=== PATIENT | female | born 1960 | race Caucasian/White ===

== ENCOUNTER 2016-10-13 08:57 | Day surgery (SDC) | payer BC ==
[2016-10-11 16:13] VITALS: BMI 33.9
[2016-10-13 09:14] VITALS: RESP 18
[2016-10-13] MEDS: SODIUM CHLORIDE 0.9% 1,000 ML IV SCH ×2 (09:14→10:53)
[2016-10-13 12:21] VITALS: BP 165/72; PULSE 58; TEMP 98
--- NOTE | 2016-10-13 15:02 | CE ---
TILT TABLE TEST DATE OF SERVICE: A 56-year-old female with recurrent dizzy spells. She underwent a 12-lead ECG which showed sinus bradycardia at rest, 47 beats a minute, normal [place], narrow QRS, normal ST segments, normal QT interval. She underwent a tilt table test. Baseline blood pressure 136/64 mmHg. Baseline based on 148 beats a minute. She was tilted upright at an angle of 70 degrees per protocol. There was no significant change in her heart rate or blood pressure. Resuming upright position, her heart rate increased into the 80s. Subsequently, she had a sudden drop in blood pressure that was preceded by a mild increase in heart rate of 93 beats a minute. Lowest blood pressure recorded was 48/32 mmHg. She was syncopal. She lost consciousness. Prior to this, she was pale, diaphoretic. When she was laid supine, her heart rate and blood pressure normalized. IMPRESSION: Neurocardiogenic response to upright tilting. SUGGEST: Avoid antihypertensive therapy, avoid Dyazide. Normal salt intake and home blood pressure monitoring.
--- NOTE | 2016-10-13 15:06 | LTR ---
October 13, 2016 RE: Nina Hernández Dear Lidia; I had the pleasure of seeing Nina Hernández in electrophysiology followup. Nina underwent a tilt table test which demonstrated neurocardiogenic syncope. In the past, she has been intolerant of lisinopril and hydrochlorothiazide. Currently she is on Dyazide. I understand that you had started her on low dose antihypertensive therapy for diastolic blood pressure that was creeping up close to 90 mmHg; however, if on Dyazide she continues to have these spells, then should be discontinued and she should limit her salt intake while monitoring home blood pressure, especially the diastolic blood pressures. Thank you for entrusting me with the care of your patient. Warm regards. Sincerely, MAGY WISE MD
== END 2016-10-13 12:14 | disposition home or self-care (01) ==
LOC: CATHEP 08:57
PROVIDERS: ATTEND Internal Medicine Clinical Cardiac Electrophysiology
DX: R55 Syncope and collapse (principal); I10 Essential (primary) hypertension; R00.1 Bradycardia, unspecified; Z79.899 Other long term (current) drug therapy; Z88.1 Allergy status to other antibiotic agents
CPT/HCPCS: 93005; 93660

== ENCOUNTER 2017-07-26 10:22 | Inpatient (IN) | payer BC ==
[2017-07-26] MEDS ORDERED: ASPIRIN 81 MG PO STA (10:40)
[2017-07-26] MEDS ORDERED: NITROGLYCERIN SL TABS 0.4 MG TAB SUBLINGUAL STA (10:40)
[2017-07-26] MEDS ORDERED: SODIUM CHLORIDE 0.9% 1,000 ML IV STA (10:40)
[2017-07-26] MEDS ORDERED: ONDANSETRON 4 MG/2 ML VIAL IVP STA (10:44)
--- NOTE | 2017-07-26 11:03 | ED ---
General Adult HPI - General Chief complaint: Chest Pain Stated complaint: chest pain, near syncope Time Seen by Provider: 07/26/17 10:40 Source: patient, RN notes reviewed Mode of arrival: wheelchair Limitations: no limitations - History of Present Illness Initial comments: Patient 57-year-old female who presents emergency room today with a chief complaint of chest pain that began approximately 7 AM. She states she was at work. She states she works at the [employer]. She states she was up moving around which again feeling some of this pain. She states it started with front and did radiate at times to the left arm. She states the pain seems to come and go little bit. She states she's currently just feeling it a 2/10 at this time. States that time she thought she felt a little short of breath and nauseated with it. Denies any other complaints at this time. Patient denies any recent fever, chills, shortness of breath, chest pain, back pain, numbness or tingling, dysuria or hematuria, constipation or diarrhea, headaches or visual changes, or any other complaints. - Related Data Home Medications Medication Instructions Recorded Confirmed Cholecalciferol [Vitamin D3] 1,000 unit PO DAILY 10/11/16 07/26/17 Multivit with Calcium,Iron,Min 1 tab PO HS 10/11/16 07/26/17 [Women's Multivitamin] Psyllium Husk [Metamucil] 0.4 gm PO HS 10/11/16 07/26/17 Triamterene-Hctz 37.5-25Mg 1 cap PO DAILY 10/11/16 07/26/17 [Dyazide 37.5-25 Capsule] Allergies Allergy/AdvReac Type Severity Reaction Status Date / Time bee pollen Allergy Anaphylaxis Verified 07/26/17 10:46 vancomycin Allergy Rash/Hives Verified 07/26/17 10:46 aspirin AdvReac ringing in Verified 07/26/17 10:46 ears caffeine AdvReac GI upset Verified 07/26/17 10:46 Review of Systems ROS Statement: Those systems with pertinent positive or pertinent negative responses have been documented in the HPI. ROS Other: All systems not noted in ROS Statement are negative. Past Medical History Past Medical History: Hypertension, Sleep Apnea/CPAP/BIPAP, Syncope Additional Past Medical History / Comment(s): see DR Krishen H & P, mild sleep apnea per pt-can't afford CPAP, past hx. iron deficiency anemia History of Any Multi-Drug Resistant Organisms: None Reported Past Surgical History: Tubal Ligation, Uterine Ablation Additional Past Surgical History / Comment(s): serjio. vein ligation legs Past Anesthesia/Blood Transfusion Reactions: No Reported Reaction Past Psychological History: Depression Smoking Status: Never smoker Past Alcohol Use History: None Reported Past Drug Use History: None Reported - Past Family History Mother Family Medical History: No Reported History General Exam - General Exam Comments Initial Comments: General: The patient is awake and alert, in no distress, and does not appear acutely ill. Eye: Pupils are equal, round and reactive to light, extra-ocular movements are intact. No nystagmus. There is normal conjunctiva bilaterally. No signs of icterus. Ears, nose, mouth and throat: There are moist mucous membranes and no oral lesions. Neck: The neck is supple, there is no tenderness or JVD. Cardiovascular: There is a regular rate and rhythm. No murmur, rub or gallop is appreciated. Respiratory: Lungs are clear to auscultation, respirations are non-labored, breath sounds are equal. No wheezes, stridor, rales, or rhonchi. Musculoskeletal: Normal ROM, no tenderness. Strength 5/5. Sensation intact. Pulses equal bilaterally 2+. Neurological: A&O x 3. CN II-XII intact, There are no obvious motor or sensory deficits. Coordination appears grossly intact. Speech is normal. Skin: Skin is warm and dry and no rashes or lesions are noted. Psychiatric: Cooperative, appropriate mood & affect, normal judgment. Limitations: no limitations Course Vital Signs 07/26/17 10:27 Temperature 97.2 F L Pulse Rate 62 Respiratory 18 Rate Blood Pressure 145/86 O2 Sat by Pulse 100 Oximetry Medical Decision Making - Medical Decision Making Patient reexamined at this time shows no signs of distress. Patient resting currently. Patient did have improvement after one nitro given here in the emergency room. She is currently pain-free at this time. Patient's cardiac enzymes are negative. Patient's EKG shows no acute changes. Patient will be admitted for serial enzymes and consult cardiology. - Lab Data Result diagrams: 07/26/17 10:52 07/26/17 10:52 Lab Results 07/26/17 07/26/17 07/26/17 Range/Units 10:52 10:52 10:52 WBC 6.7 (3.8-10.6) k/uL RBC 4.94 (3.80-5.40) m/uL Hgb 14.9 (11.4-16.0) gm/dL Hct 42.9 (34.0-46.0) % MCV 86.8 (80.0-100.0) fL MCH 30.1 (25.0-35.0) pg MCHC 34.7 (31.0-37.0) g/dL RDW 12.3 (11.5-15.5) % Plt Count 251 (150-450) k/uL Neutrophils % 71 % Lymphocytes % 22 % Monocytes % 5 % Eosinophils % 1 % Basophils % 0 % Neutrophils # 4.7 (1.3-7.7) k/uL Lymphocytes # 1.5 (1.0-4.8) k/uL Monocytes # 0.3 (0-1.0) k/uL Eosinophils # 0.1 (0-0.7) k/uL Basophils # 0.0 (0-0.2) k/uL PT (9.0-12.0) sec INR (<1.2) APTT (22.0-30.0) sec Sodium 141 (137-145) mmol/L Potassium 4.6 (3.5-5.1) mmol/L Chloride 102 (98-107) mmol/L Carbon Dioxide 25 (22-30) mmol/L Anion Gap 14 mmol/L BUN 19 H (7-17) mg/dL Creatinine 0.92 (0.52-1.04) mg/dL Est GFR (CKD-EPI)AfAm 80 (>60 ml/min/1.73 sqM) Est GFR (CKD-EPI)NonAf 69 (>60 ml/min/1.73 sqM) Glucose 89 (74-99) mg/dL Calcium 10.0 (8.4-10.2) mg/dL Magnesium 1.9 (1.6-2.3) mg/dL Total Bilirubin 0.5 (0.2-1.3) mg/dL AST 24 (14-36) U/L ALT 33 (9-52) U/L Alkaline Phosphatase 98 (38-126) U/L Total Creatine Kinase 75 (30-135) U/L CK-MB (CK-2) 0.8 (0.0-2.4) ng/mL CK-MB (CK-2) Rel Index 1.1 Troponin I <0.012 (0.000-0.034) ng/mL Total Protein 7.7 (6.3-8.2) g/dL Albumin 4.6 (3.5-5.0) g/dL 07/26/17 Range/Units 10:52 WBC (3.8-10.6) k/uL RBC (3.80-5.40) m/uL Hgb (11.4-16.0) gm/dL Hct (34.0-46.0) % MCV (80.0-100.0) fL MCH (25.0-35.0) pg MCHC (31.0-37.0) g/dL RDW (11.5-15.5) % Plt Count (150-450) k/uL Neutrophils % % Lymphocytes % % Monocytes % % Eosinophils % % Basophils % % Neutrophils # (1.3-7.7) k/uL Lymphocytes # (1.0-4.8) k/uL Monocytes # (0-1.0) k/uL Eosinophils # (0-0.7) k/uL Basophils # (0-0.2) k/uL PT 10.0 (9.0-12.0) sec INR 1.0 (<1.2) APTT 23.3 (22.0-30.0) sec Sodium (137-145) mmol/L Potassium (3.5-5.1) mmol/L Chloride (98-107) mmol/L Carbon Dioxide (22-30) mmol/L Anion Gap mmol/L BUN (7-17) mg/dL Creatinine (0.52-1.04) mg/dL Est GFR (CKD-EPI)AfAm (>60 ml/min/1.73 sqM) Est GFR (CKD-EPI)NonAf (>60 ml/min/1.73 sqM) Glucose (74-99) mg/dL Calcium (8.4-10.2) mg/dL Magnesium (1.6-2.3) mg/dL Total Bilirubin (0.2-1.3) mg/dL AST (14-36) U/L ALT (9-52) U/L Alkaline Phosphatase (38-126) U/L Total Creatine Kinase (30-135) U/L CK-MB (CK-2) (0.0-2.4) ng/mL CK-MB (CK-2) Rel Index Troponin I (0.000-0.034) ng/mL Total Protein (6.3-8.2) g/dL Albumin (3.5-5.0) g/dL Disposition Clinical Impression: Chest pain Disposition: ADMITTED IP TO THIS HOSP Condition: Good Instructions: Chest Pain (ED) Referrals: Lidia Edwards DO [Primary Care Provider] - 1-2 days Time of Disposition: 12:21
[2017-07-26 11:14] LABS: Basophils % (A) 0 %; Eosinophils # (A) 0.1 k/uL (0-0.7); Eosinophils % (A) 1 %; HCT 42.9 % (34.0-46.0); HGB 14.9 gm/dL (11.4-16.0); Lymphocytes # (A) 1.5 k/uL (1.0-4.8); Lymphocytes % (A) 22 %; MCH 30.1 pg (25.0-35.0); MCHC 34.7 g/dL (31.0-37.0); MCV 86.8 fL (80.0-100.0); Mean Platelet Volume 6.4; Monocytes # (A) 0.3 k/uL (0-1.0); Monocytes % (A) 5 %; Neutrophils # (A) 4.7 k/uL (1.3-7.7); Neutrophils % (A) 71 %; Platelet Count 251 k/uL (150-450); RBC 4.94 m/uL (3.80-5.40); RDW 12.3 % (11.5-15.5); WBC 6.7 k/uL (3.8-10.6)
[2017-07-26 11:26] LABS: Albumin 4.6 g/dL (3.5-5.0); Potassium 4.6 mmol/L (3.5-5.1); Total Bilirubin 0.5 mg/dL (0.2-1.3); Total Protein 7.7 g/dL (6.3-8.2)
[2017-07-26 11:43] LABS: Creatine Kinase 75 U/L (30-135); Partial Thromboplastin Time 23.3 sec (22.0-30.0)
--- NOTE | 2017-07-26 11:48 | XR ---
EXAMINATION TYPE: XR chest 2V DATE OF EXAM: 07/26/2017 COMPARISON: NONE INDICATION: Chest pain TECHNIQUE: Frontal and lateral views of the chest are obtained. FINDINGS: The heart size is normal. The pulmonary vasculature is normal. The lungs are clear. IMPRESSION: 1. No acute pulmonary process.
[2017-07-26 11:57] LABS: Creatine Kinase MB 0.8 ng/mL (0.0-2.4); Troponin I <0.012 ng/mL (0.000-0.034)
[2017-07-26] MEDS ORDERED: HEPARIN SODIUM,PORCINE 5,000 UNIT/ML 1 ML VIAL IV ONE (12:22)
[2017-07-26] MEDS ORDERED: NITROGLYCERIN SL TABS 0.4 MG TAB SUBLINGUAL PRN (12:22)
[2017-07-26] MEDS ORDERED: HEPARIN SOD,PORK IN 0.45% NACL 25,000 UNIT in 0.45% NACL 1 500ML.BAG IV SCH (12:30)
[2017-07-26] MEDS ORDERED: ACETAMINOPHEN TAB 500 MG TAB PO STA (13:32)
[2017-07-26 16:40] LABS: Creatine Kinase 59 U/L (30-135)
[2017-07-26 16:54] LABS: Creatine Kinase MB 0.6 ng/mL (0.0-2.4); Troponin I <0.012 ng/mL (0.000-0.034)
[2017-07-26] MEDS ORDERED: ACETAMINOPHEN TAB 325 MG TAB PO PRN (21:42)
[2017-07-26 23:18] LABS: Creatine Kinase 53 U/L (30-135)
[2017-07-26 23:32] LABS: Creatine Kinase MB 0.6 ng/mL (0.0-2.4); Troponin I <0.012 ng/mL (0.000-0.034)
[2017-07-27 05:25] LABS: Cholesterol 183 mg/dL (<200); HDL Cholesterol 56 mg/dL (40-60); LDL Cholesterol,Calculated 114 mg/dL (0-99); Triglycerides 67 mg/dL (<150)
[2017-07-27] MEDS ORDERED: ASPIRIN 325 MG TAB PO SCH (09:00)
[2017-07-27] MEDS ORDERED: RX INFO: IV CONTRAST WAS GIVEN 1 EACH MISC MISCELLANE PRN (09:48)
--- NOTE | 2017-07-27 10:41 | CT ---
CT CHEST FOR PULMONARY EMBOLISM. EXAMINATION TYPE: CT angio chest DATE OF EXAM: 07/27/2017 INDICATION: Elevated d-dimer, shortness of breath CT DLP: 865 mGycm, Automated exposure control for dose reduction was used. CONTRAST: Patient injected with 100 mL of Omnipaque 350. COMPARISON: NONE TECHNIQUE: CT of the chest is performed on a spiral scan at 2 mm thick sections. Study is performed with intravenous contrast timed for evaluation for pulmonary embolism. This will limit additional po rtions of the evaluation. 3-D MIP images reconstructed by the technologist are reviewed on the compu ter in the coronal and sagittal planes. FINDINGS: No persistent filling defects are evident to suggest an acute pulmonary embolism. No mediastinal or hilar adenopathy enlarged by CT criteria is evident. The ascending aorta diameter at the level of the main pulmonary artery is 3.6 cm. The main pulmonary artery diameter at the bifur cation is 3.1 cm. Lung windows are clear. Limited CT section through the upper abdomen are unremarkable. IMPRESSIONS: 1. No acute pulmonary embolism.
[2017-07-27 11:59] VITALS: PULSE 57
--- NOTE | 2017-07-27 13:05 | P.CRDCN ---
History of Present Illness Consult date: 07/27/17 Consult reason: chest pain History of present illness: Mrs. Hernández is a pleasant 57-year-old female past medical history significant for neurocardiac syncope, hypertension, gastroesophageal reflux disease and sleep apnea. She follows with Dr. Morales in the outpatient setting. She denies history of coronary artery disease. We have been asked to see her in consultation for complaints of chest pain. She states while at work yesterday she started feeling a pressure heavy sensation in the left anterior chest that radiated down her left arm. She then became mildly short of breath, nauseated, diaphoretic and dizzy. At that point she sat down because she felt as though she was going to pass out. The pain persisted off and on for approximately 3-4 hrs until she came to the emergency department. At that time she was given some nitroglycerin and it took the pain away. She isn't completely asymptomatic since admission. Telemetry tracings have been unremarkable aside from sinus bradycardia at night while sleeping. She denies associated palpitations, vomiting. She also denies symptoms of cough, fever chills, PND or orthopnea. EKG on arrival reveals sinus mechanism with no acute ST or T-wave abnormalities. Chest x-ray is negative for acute cardiopulmonary process. Laboratory data reviewed, hemoglobin 14.9, platelets 251, potassium 4.6, magnesium 1.9, creatinine 0.92, cardiac enzymes negative 3, LDL 114, ratio 56. Current cardiac medications include Dyazide 37.5/25 mg daily. Review of Systems At the time of exam: CONSTITUTIONAL: Denies fever. Denies chills. EYES: Denies blurred vision. Denies vision changes. Denies eye pain. EARS, NOSE, MOUTH & THROAT: Denies headache. Denies sore throat. Denies ear pain. CARDIOVASCULAR: Denies chest pain. Denies shortness of breath. Denies orthopnea. Denies PND. Denies palpitations. RESPIRATORY: Denies cough. GASTROINTESTINAL: Denies abdominal pain. Denies diarrhea. Denies constipation. Denies nausea. Denies vomiting. MUSCULOSKELETAL: Denies myalgias. INTEGUMENTARY: Denies pruitis. Denies rash. NEUROLOGIC: Denies numbness. Denies tingling. Denies weakness. PSYCHIATRIC: Denies anxiety. Denies depression. ENDOCRINE: Denies fatigue. Denies weight change. Denies polydipsia. Denies polyurina. GENITOURINARY: Denies burning, hematuria or urgency with micturation. HEMATOLOGIC: Denies history of anemia. Denies bleeding. Past Medical History Past Medical History: GERD/Reflux, Hypertension, Sleep Apnea/CPAP/BIPAP, Syncope Additional Past Medical History / Comment(s): KRISTIN-mild/no device, iron deficiency anemia, 2010 R foot cellulitis, L knee pain chronic for 2 yrs. History of Any Multi-Drug Resistant Organisms: None Reported Past Surgical History: Tubal Ligation, Uterine Ablation Additional Past Surgical History / Comment(s): serjio. vein ligation legs, tilt table test, colonoscopy, D&C. Past Anesthesia/Blood Transfusion Reactions: No Reported Reaction Past Psychological History: Depression Additional Psychological History / Comment(s): Pt states she has been treated in the past for depression but none currently. She is independent. Smoking Status: Never smoker Past Alcohol Use History: None Reported Past Drug Use History: None Reported - Past Family History Mother Family Medical History: Pneumonia Additional Family Medical History / Comment(s): Mother of post op pneumonia at the age of 40 yrs. Father Family Medical History: Congestive Heart Failure (CHF) Additional Family Medical History / Comment(s): Father lived to be 90 yrs old. Medications and Allergies Home Medications Medication Instructions Recorded Confirmed Type Cholecalciferol [Vitamin D3] 1,000 unit PO DAILY 10/11/16 07/26/17 History Multivit with Calcium,Iron,Min 1 tab PO HS 10/11/16 07/26/17 History [Women's Multivitamin] Psyllium Husk [Metamucil] 0.4 gm PO HS 10/11/16 07/26/17 History Triamterene-Hctz 37.5-25Mg 1 cap PO DAILY 10/11/16 07/26/17 History [Dyazide 37.5-25 Capsule] Allergies Allergy/AdvReac Type Severity Reaction Status Date / Time bee pollen Allergy Anaphylaxis Verified 07/26/17 10:46 vancomycin Allergy Rash/Hives Verified 07/26/17 10:46 aspirin AdvReac ringing in Verified 07/26/17 10:46 ears caffeine AdvReac GI upset Verified 07/26/17 10:46 Physical Exam Vitals: Vital Signs Temp Pulse Pulse Resp BP BP Pulse Ox 07/27/17 04:00 40 L 16 07/27/17 03:07 96.7 F L 57 L 16 130/70 97 07/26/17 23:46 98.1 F 54 L 16 163/77 100 07/26/17 23:22 46 L 16 07/26/17 20:00 45 L 16 151/84 99 07/26/17 18:35 95 07/26/17 17:55 98.2 F 63 18 170/94 98 07/26/17 17:12 65 16 149/79 99 07/26/17 14:52 64 16 149/79 100 07/26/17 13:19 55 L 18 149/89 100 07/26/17 12:26 57 L 19 130/80 100 07/26/17 10:27 97.2 F L 62 18 145/86 100 Intake and Output 07/26/17 07/27/17 07/27/17 22:59 06:59 14:59 Intake Total 174.333 Balance 174.333 Intake: Intake, IV Titration 174.333 Amount Heparin Sod,Pork in 0.45% 174.333 NaCl 25,000 unit In 0.45 % NaCl 1 500ml.bag @ 9.59 UNITS/KG/HR 20 mls/hr IV .Q24H [facility] Rx#:[id number] Other: Voiding Method Toilet Toilet # Voids 1 1 Weight 105.9 kg Blood pressure 125/75 heart rate 61 afebrile maintaining oxygen saturation on room air GENERAL: This is a 57-year-old female in no apparent distress at the time of my examination. HEENT: Head is atraumatic, normocephalic. Pupils are equal, round. Sclerae anicteric. Conjunctivae are clear. Mucous membranes of the mouth are moist. Neck is supple. There is no jugular venous distention. No carotid bruit is heard. LUNGS: Clear to auscultation no wheezes, rales or rhonchi. No chest wall tenderness is noted on palpation or with deep breathing. HEART: Regular rate and rhythm with faint systolic ejection murmur at the base, no rubs or gallops. S1 and S2 heard. ABDOMEN: Soft, nontender. Bowel sounds are heard. No organomegaly noted. EXTREMITIES: No evidence of peripheral edema and no calf tenderness noted. VASCULAR: Radial and dorsalis pedis pulses palpated, no evidence of clubbing. NEUROLOGIC: Patient is awake, alert and oriented x3. Results 07/26/17 10:52 07/26/17 10:52 Cardiac Enzymes 07/26/17 07/26/17 07/26/17 Range/Units 10:52 10:52 16:03 AST 24 (14-36) U/L CK-MB (CK-2) 0.8 0.6 (0.0-2.4) ng/mL Troponin I <0.012 <0.012 (0.000-0.034) ng/mL 07/26/17 Range/Units 22:36 AST (14-36) U/L CK-MB (CK-2) 0.6 (0.0-2.4) ng/mL Troponin I <0.012 (0.000-0.034) ng/mL Coagulation 07/26/17 07/26/17 07/27/17 Range/Units 10:52 18:44 04:19 PT 10.0 (9.0-12.0) sec APTT 23.3 44.6 H 52.5 H (22.0-30.0) sec Lipids 07/27/17 Range/Units 04:19 Triglycerides 67 (<150) mg/dL Cholesterol 183 (<200) mg/dL HDL Cholesterol 56 (40-60) mg/dL CBC 07/26/17 Range/Units 10:52 WBC 6.7 (3.8-10.6) k/uL RBC 4.94 (3.80-5.40) m/uL Hgb 14.9 (11.4-16.0) gm/dL Hct 42.9 (34.0-46.0) % Plt Count 251 (150-450) k/uL Comprehensive Metabolic Panel 07/26/17 Range/Units 10:52 Sodium 141 (137-145) mmol/L Potassium 4.6 (3.5-5.1) mmol/L Chloride 102 (98-107) mmol/L Carbon Dioxide 25 (22-30) mmol/L BUN 19 H (7-17) mg/dL Creatinine 0.92 (0.52-1.04) mg/dL Glucose 89 (74-99) mg/dL Calcium 10.0 (8.4-10.2) mg/dL AST 24 (14-36) U/L ALT 33 (9-52) U/L Alkaline Phosphatase 98 (38-126) U/L Total Protein 7.7 (6.3-8.2) g/dL Albumin 4.6 (3.5-5.0) g/dL Current Medications Generic Name Dose Route Start Last Admin Trade Name Freq PRN Reason Stop Dose Admin Acetaminophen 650 mg 07/26/17 21:42 Tylenol Tab PO Q4HR PRN Fever and/ or Pain Aspirin 325 mg 07/27/17 09:00 Aspirin PO DAILY KWABENA Heparin Sodium/Sodium Chloride 500 mls @ 20 mls/hr 07/26/17 12:30 07/26/17 21 :24 25,000 unit/ Sodium Chloride IV 11.59 units/kg/hr .Q24H KWABENA 24.2 mls/hr Protocol Titration 9.59 UNITS/KG/HR Nitroglycerin 0.4 mg 07/26/17 12:22 Nitrostat SUBLINGUAL Q5M PRN Chest Pain Intake and Output 07/26/17 07/27/17 07/27/17 22:59 06:59 14:59 Intake Total 174.333 Balance 174.333 Intake: Intake, IV Titration 174.333 Amount Heparin Sod,Pork in 0.45% 174.333 NaCl 25,000 unit In 0.45 % NaCl 1 500ml.bag @ 9.59 UNITS/KG/HR 20 mls/hr IV .Q24H [facility] Rx#:[id number] Other: Voiding Method Toilet Toilet # Voids 1 1 Weight 105.9 kg 07/26/17 10:52 07/26/17 10:52 Assessment and Plan Assessment: ASSESSMENT 1. Chest pain, atypical. An acute coronary event has been ruled out with no EKG evidence of ischemia and negative cardiac enzymes. 2. Hypertension 3. Dyslipidemia 4. Obesity PLAN Check d-dimer. If positive to CT angios the chest rule out pulmonary embolism. Obtain 2-D echocardiogram and Doppler study to assess cardiac structure and function. Perform stress echocardiogram to assess for stress-induced cardiac ischemia. Lifestyle modifications discussed and recommended for lowering of cholesterol. Further recommendations be based on diagnostic findings. Thank you kindly for this consultation. Nurse Practitioner note has been reviewed, I agree with a documented findings and plan of care. Patient was seen and examined.
--- NOTE | 2017-07-27 15:13 | P.HPIM ---
History of Present Illness H&P Date: 07/27/17 Chief Complaint: Chest pain This is a 57-year-old female, patient [facility]. She has a known past medical history of hypertension, obstructive sleep apnea not requiring CPAP any longer, iron deficiency anemia, neurocardiogenic syncope and sinus bradycardia syndrome. She is followed by Dr. Enrique in the office. Patient works at [employer] in the [place] section. She reports on at 7 AM yesterday morning she started having chest pains while she was at work. The chest pains were on the left side of her chest going down into the left arm. Symptoms lasted for about 3-4 hours. She had some nausea, sweating and some shortness of breath with the symptoms. Patient was admitted to the observation floor. Cardiac workup was initiated. Cardiology consulted. EKG showing normal sinus rhythm with inferior infarct age undetermined, chest x-ray was negative, troponins negative 3 sets. She did have a elevated d-dimer at 0.66 CTA of the chest completed which was negative for PE. Last stress test was in October which was negative. Cardiology had scheduled patient for a stress test and echocardiogram today. They have reviewed review those results and have found no significant after malady and has cleared patient for discharge. Patient's symptoms have resolved. Review of Systems Please refer to HPI otherwise unremarkable Past Medical History Past Medical History: GERD/Reflux, Hypertension, Sleep Apnea/CPAP/BIPAP, Syncope Additional Past Medical History / Comment(s): KRISTIN-mild/no device, iron deficiency anemia, 2010 R foot cellulitis, L knee pain chronic for 2 yrs. History of Any Multi-Drug Resistant Organisms: None Reported Past Surgical History: Tubal Ligation, Uterine Ablation Additional Past Surgical History / Comment(s): serjio. vein ligation legs, tilt table test, colonoscopy, D&C. Past Anesthesia/Blood Transfusion Reactions: No Reported Reaction Past Psychological History: Depression Additional Psychological History / Comment(s): Pt states she has been treated in the past for depression but none currently. She is independent. Smoking Status: Never smoker Past Alcohol Use History: None Reported Past Drug Use History: None Reported - Past Family History Mother Family Medical History: Pneumonia Additional Family Medical History / Comment(s): Mother of post op pneumonia at the age of 40 yrs. Father Family Medical History: Congestive Heart Failure (CHF) Additional Family Medical History / Comment(s): Father lived to be 90 yrs old. Medications and Allergies Home Medications Medication Instructions Recorded Confirmed Type Cholecalciferol [Vitamin D3] 1,000 unit PO DAILY 10/11/16 07/26/17 History Multivit with Calcium,Iron,Min 1 tab PO HS 10/11/16 07/26/17 History [Women's Multivitamin] Psyllium Husk [Metamucil] 0.4 gm PO HS 10/11/16 07/26/17 History Triamterene-Hctz 37.5-25Mg 1 cap PO DAILY 10/11/16 07/26/17 History [Dyazide 37.5-25 Capsule] Allergies Allergy/AdvReac Type Severity Reaction Status Date / Time bee pollen Allergy Anaphylaxis Verified 07/26/17 10:46 vancomycin Allergy Rash/Hives Verified 07/26/17 10:46 aspirin AdvReac ringing in Verified 07/26/17 10:46 ears caffeine AdvReac GI upset Verified 07/26/17 10:46 Physical Exam Vitals: Vital Signs Temp Pulse Pulse Resp BP BP Pulse Ox 07/27/17 11:57 98.1 F 57 L 16 116/82 99 07/27/17 08:00 98.6 F 61 16 125/75 98 07/27/17 04:00 40 L 16 07/27/17 03:07 96.7 F L 57 L 16 130/70 97 07/26/17 23:46 98.1 F 54 L 16 163/77 100 07/26/17 23:22 46 L 16 07/26/17 20:00 45 L 16 151/84 99 07/26/17 18:35 95 07/26/17 17:55 98.2 F 63 18 170/94 98 07/26/17 17:12 65 16 149/79 99 Intake and Output 07/27/17 07/27/17 07/27/17 06:59 14:59 22:59 Intake Total 236 Balance 236 Intake: Oral 236 Other: Voiding Method Toilet Toilet # Voids 1 1 Head normocephalic Neck supple Lungs clear to auscultation bilaterally no wheezing or crackles Heart regular rate and rhythm S1-S2, no rub or gallop Abdomen is soft nontender nondistended positive bowel sounds no hepatosplenomegaly Extremities no edema Neuro alert and orientated to 3 Results CBC & Chem 7: 07/26/17 10:52 07/26/17 10:52 Labs: Abnormal Lab Results - Last 24 Hours (Table) 07/26/17 07/27/17 07/27/17 Range/Units 18:44 04:19 04:19 APTT 44.6 H 52.5 H (22.0-30.0) sec D-Dimer (<0.60) mg/L FEU LDL Cholesterol, Calc 114 H (0-99) mg/dL 07/27/17 Range/Units 04:19 APTT (22.0-30.0) sec D-Dimer 0.66 H (<0.60) mg/L FEU LDL Cholesterol, Calc (0-99) mg/dL Thrombosis Risk Factor Assmnt - Choose All That Apply Any of the Below Risk Factors Present?: Yes Each Factor Represents 1 point: Age 41-60 years, Obesity (BMI >25) Other Risk Factors: No Other congenital or acquired thrombophilia - If yes, enter type in comment: No Thrombosis Risk Factor Assessment Total Risk Factor Score: 2 Thrombosis Risk Factor Assessment Level: Low Risk Assessment and Plan Assessment: 1. Chest pain: [place] ruled out. Troponins negative 3 sets, EKG normal sinus rhythm, chest x-ray negative, d-dimer elevated CTA of the chest negative for PE. Patient underwent stress test and echocardiogram today. Results are reviewed by cardiology and they had reported them as negative. Case discussed with cardiology nurse practitioner. They have cleared patient for discharge. 2. History of essential hypertension 3. Iron deficiency anemia 4. History of obstructive sleep apnea 5. Hyperlipidemia: Lifestyle modifications are recommended per cardiology. LDL 114 Time with Patient: Greater than 30 (Greater than 50% of the total time spent in counseling and coordination of care.I performed an examination of the patient and discussed their management with the physician Dry House Operator. I have reviewed the Physician Dry House Operator's notes and agree with the documented findings and plan of care)
--- NOTE | 2017-07-27 15:16 | P.DS ---
Providers Date of admission: 07/26/17 13:04 Expected date of discharge: 07/27/17 Attending physician: Hugo Rondon Consults: 07/26/17 12:22 Consult Physician Stat Consulting Provider: [facility] Consult Reason/Comments: Chest pain Do you want consulting provider notified?: Yes Primary care physician: Lidia Edwards [facility] Course: Discharge diagnosis 1. Chest pain: [place] ruled out. Troponins negative 3 sets, EKG normal sinus rhythm, chest x-ray negative, d-dimer elevated CTA of the chest negative for PE. Patient underwent stress test and echocardiogram today. Results are reviewed by cardiology and they had reported them as negative. Case discussed with cardiology nurse practitioner. They have cleared patient for discharge. 2. History of essential hypertension 3. Iron deficiency anemia 4. History of obstructive sleep apnea 5. Hyperlipidemia: Lifestyle modifications are recommended per cardiology. LDL 114 Hospital course This is a 57-year-old female, patient [facility]. She has a known past medical history of hypertension, obstructive sleep apnea not requiring CPAP any longer, iron deficiency anemia, neurocardiogenic syncope and sinus bradycardia syndrome. She is followed by Dr. Enrique in the office. Patient works at [employer] in the [employer]. She reports on at 7 AM yesterday morning she started having chest pains while she was at work. The chest pains were on the left side of her chest going down into the left arm. Symptoms lasted for about 3-4 hours. She had some nausea, sweating and some shortness of breath with the symptoms. Patient was admitted to the observation floor. Cardiac workup was initiated. Cardiology consulted. EKG showing normal sinus rhythm with inferior infarct age undetermined, chest x-ray was negative, troponins negative 3 sets. She did have a elevated d-dimer at 0.66 CTA of the chest completed which was negative for PE. Last stress test was in October which was negative. Cardiology had scheduled patient for a stress test and echocardiogram today. They have reviewed review those results and have found no significant after malady and has cleared patient for discharge. Patient's symptoms have resolved. Chest pain has resolved. Patient seen by cardiology. Cardiac workup is negative. Stress tests and negative. EchocardiogramsNormality. Results of the echo and stress test were reviewed by cardiology. Reports are not available to me. Case discussed with cardiology they have cleared her for discharge. Alvaro España follow-up with her in the office. Recommend that she sees her PCP in 1 week. Chest pain had resolved. [place] ruled out. Patient is medically stable for discharge. I performed an examination of the patient and discussed their management with the physician Wound Care Nurse. I have reviewed the Physician Wound Care Nurse's notes and agree with the documented findings and plan of care Patient Condition at Discharge: Stable Plan - Discharge Summary Discharge Rx Participant: No New Discharge Prescriptions: Continue Triamterene-Hctz 37.5-25Mg [Dyazide 37.5-25 Capsule] 1 cap PO DAILY Cholecalciferol [Vitamin D3] 1,000 unit PO DAILY Psyllium Husk [Metamucil] 0.4 gm PO HS Multivit with Calcium,Iron,Min [Women's Multivitamin] 1 tab PO HS Discharge Medication List Cholecalciferol [Vitamin D3] 1,000 unit PO DAILY 10/11/16 [History] Multivit with Calcium,Iron,Min [Women's Multivitamin] 1 tab PO HS 10/11/16 [ History] Psyllium Husk [Metamucil] 0.4 gm PO HS 10/11/16 [History] Triamterene-Hctz 37.5-25Mg [Dyazide 37.5-25 Capsule] 1 cap PO DAILY 10/11/16 [ History] Follow up Appointment(s)/Referral(s): John De La Torre MD [STAFF PHYSICIAN] - 3 Weeks Lidia Edwards DO [Primary Care Provider] - 1 Week Patient Instructions/Handouts: Chest Pain (ED) Activity/Diet/Wound Care/Special Instructions: Diet: cardiac, low cholesterol Activity: as tolerated Discharge Disposition: HOME SELF-CARE
[2017-07-27 15:55] VITALS: BP 132/82; RESP 18; TEMP 98.6
--- NOTE | 2017-07-27 17:23 | ECHOF ---
Referral Reason:cp MEASUREMENTS -------- HEIGHT: 167.6 cm WEIGHT: 105.7 kg BP: RVIDd: 3.7 cm (< 3.3) IVSd: 1.0 cm (0.6 - 1.1) LVIDd: 4.6 cm (3.9 - 5.3) LVPWd: 0.8 cm (0.6 - 1.1) IVSs: 1.5 cm LVIDs: 2.6 cm LVPWs: 1.7 cm Ao Diam: 3.1 cm (2.0 - 3.7) AV Cusp: 1.7 cm (1.5 - 2.6) LA Diam: 2.8 cm (2.7 - 3.8) MV EXCURSION: 16.659 mm (> 18.000) MV EF SLOPE: 44 mm/s (70 - 150) EPSS: 0.7 cm MV E Noel: 1.06 m/s MV DecT: 321 ms MV A Noel: 1.18 m/s MV E/A Ratio: 0.90 RAP: 5.00 mmHg RVSP: 47.99 mmHg FINDINGS -------- Sinus rhythm. This was a technically good study. The left ventricular size is normal. Left ventricular wall thickness is normal. Overall left vent ricular systolic function is low-normal with, an EF between 50 - 55 %. The right ventricle is mildly enlarged. The left atrium is normal in size. The right atrium is normal in size. The aortic valve is trileaflet, and appears structurally normal. No aortic stenosis or regurgitation. There is trace mitral regurgitation. Mild tricuspid regurgitation present. There is mild pulmonary hypertension. The right ventricular systolic pressure, as measured by Doppler, is 47.99mmHg. Pulmonic valve appears structurally normal. The aortic root size is normal. Normal inferior vena cava with normal inspiratory collapse consistent with estimated right atrial pre ssure of 5 mmHg. The pericardium is normal. CONCLUSIONS -------- 1. Sinus rhythm. 2. This was a technically good study. 3. The left ventricular size is normal. 4. Left ventricular wall thickness is normal. 5. Overall left ventricular systolic function is low-normal with, an EF between 50 - 55 %. 6. The right ventricle is mildly enlarged. 7. The left atrium is normal in size. 8. The right atrium is normal in size. 9. The aortic valve is trileaflet, and appears structurally normal. No aortic stenosis or regurgitati on. 10. There is trace mitral regurgitation. 11. Mild tricuspid regurgitation present. 12. There is mild pulmonary hypertension. 13. The right ventricular systolic pressure, as measured by Doppler, is 47.99mmHg. 14. Pulmonic valve appears structurally normal. 15. The aortic root size is normal. 16. Normal inferior vena cava with normal inspiratory collapse consistent with estimated right atrial pressure of 5 mmHg. 17. The pericardium is normal. COMBUSTION ANALYST: Ciara Goodrich RDCS
--- NOTE | 2017-08-01 12:37 | P.STRESS ---
- Stress Test Note Stress Test Results/Findings: Exam Performed: stress echo exercise Exam Date: 07/27/17 Reason for Exam: CHEST PAIN Height: 5 ft 6 in Weight: 105.9 kg Protocol: JUAN Stage: 2 Duration of Exercise: 6:00 Resting Heart Rate: 71 Resting Blood Pressure: 126/86 Maximum Achieved Heart Rate: 138 Maximum Achieved Blood Pressure: 213/61 85% PMHR: 138 100% PMHR: 162 METS: 7.1 Technologist Comment: Stress Test Results/Findings: This is a 57-year-old female with history of hypertension, family history of ischemic heart disease being evaluated for symptoms of chest pain and shortness of breath. Baseline EKG showed sinus rhythm with normal DE interval, QRS duration. Blood pressure at rest is 126/86, pulse rate of 71. Patient walked on the Juan protocol for 6 minutes achieving a maximum heart rate of 138 with a blood pressure of 213/61. EKGs taken during and after exercise did not reveal any significant changes to suggest ischemia. Patient had frequent PVCs and couplets in the post exercise period. Echo data: Baseline echo images showed normal wall motion and thickening. Exercise echo images showed augmentation of wall motion and thickening in all the segments. Final impression: #1. Negative stress test #2. Negative stress echo.
--- NOTE | 2017-08-01 13:27 | ECHOS ---
- Stress Test Note Stress Test Results/Findings: Exam Performed: stress echo exercise Exam Date: 07/27/17 Reason for Exam: CHEST PAIN Height: 5 ft 6 in Weight: 105.9 kg Protocol: JUAN Stage: 2 Duration of Exercise: 6:00 Resting Heart Rate: 71 Resting Blood Pressure: 126/86 Maximum Achieved Heart Rate: 138 Maximum Achieved Blood Pressure: 213/61 85% PMHR: 138 100% PMHR: 162 METS: 7.1 Technologist Comment: Stress Test Results/Findings: This is a 57-year-old female with history of hypertension, family history of ischemic heart disease being evaluated for symptoms of chest pain and shortness of breath. Baseline EKG showed sinus rhythm with normal KS interval, QRS duration. Blood pressure at rest is 126/86, pulse rate of 71. Patient walked on the Juan protocol for 6 minutes achieving a maximum heart rate of 138 with a blood pressure of 213/61. EKGs taken during and after exercise did not reveal any significant changes to suggest ischemia. Patient had frequent PVCs and couplets in the post exercise period. Echo data: Baseline echo images showed normal wall motion and thickening. Exercise echo images showed augmentation of wall motion and thickening in all the segments. Final impression: #1. Negative stress test #2. Negative stress echo. PETER
== END 2017-07-27 16:36 | disposition home or self-care (01) | DRG 313 ==
LOC: EC 10:22 → 3OBS 12:22 → OBSVTOIN 13:04 → 3OBS 17:53
PROVIDERS: ADMIT Internal Medicine; ATTEND Internal Medicine
DX: R07.9 Chest pain, unspecified (principal); D50.9 Iron deficiency anemia, unspecified; E66.9 Obesity, unspecified; E78.5 Hyperlipidemia, unspecified; G47.33 Obstructive sleep apnea (adult) (pediatric); I10 Essential (primary) hypertension; K21.9 Gastro-esophageal reflux disease without esophagitis; R79.1 Abnormal coagulation profile; Z82.49 Family history of ischemic heart disease and other diseases of the circulatory system; Z88.8 Allergy status to other drugs, medicaments and biological substances; Z88.6 Allergy status to analgesic agent; Z88.1 Allergy status to other antibiotic agents; Z91.030 Bee allergy status; M25.562 Pain in left knee; Z68.37 Body mass index [BMI] 37.0-37.9, adult; Z79.899 Other long term (current) drug therapy
CPT/HCPCS: 36415; 71046; 71275; 80053; 80061; 82550; 82553; 83735; 84484; 85025; 85379; 85610; 85730; 93005; 93017; 93306; 93350; 96361; 96365; 96366; 96375; 96376; 99285

== ENCOUNTER → 2018-05-17 | Outpatient (CLI) | payer BC ==
--- NOTE | 2018-05-18 13:52 | MM ---
Reason for exam: screening (asymptomatic). Last mammogram was performed 3 years ago. Physical Findings: A clinical breast exam by your physician is recommended on an annual basis and results should be correlated with mammographic findings. MG Screening Mammo w CAD Bilateral CC and MLO view(s) were taken. Prior study comparison: May 18, 2015, mammogram, performed at [facility]. November 13, 2014, mammogram, performed at [facility]. November 06, 2014, mammogram, performed at [facility]. The breast tissue is extremely dense which could obscure a lesion on mammography. Finding #1: There is a 10 mm equal density (isodense), circumscribed oval mass in the middle, central, posterior position of the left breast. Finding #2: There are stable typically benign round, regional calcifications in the anterior position of the left breast. ASSESSMENT: Incomplete: need additional imaging evaluation, BI-RAD 0 RECOMMENDATION: Special view mammogram of the right breast. If lesion persists on supplemental views, image directed ultrasound is recommended. [facility] will attempt to contact patient to return for supplemental views and ultrasound if indicated.
== END ==
LOC: RADMAMWWP 07:43
PROVIDERS: ATTEND Family Medicine
DX: Z12.31 Encounter for screening mammogram for malignant neoplasm of breast (principal)
CPT/HCPCS: 77067

== ENCOUNTER → 2018-06-14 | Outpatient (CLI) | payer BC ==
--- NOTE | 2018-06-17 10:04 | MM ---
Reason for exam: additional evaluation requested from abnormal screening. Last mammogram was performed 1 month ago. History: Benign cyst aspirations bilateral breast 5-10 years ago. Had an ablation and tubal. Physical Findings: Nurse did not find any significant physical abnormalities on exam. MG 3D Work Up W/Cad RT Spot compression CC, spot compression MLO, and ML view(s) were taken of the right breast. Prior study comparison: May 17, 2018, bilateral MG screening mammo w CAD. May 18, 2015, mammogram, performed at [facility]. There is a 6 mm mass in the right breast 6-7 o'clock lower outer position 9 cm from the nipple. ASSESSMENT: Incomplete: need additional imaging evaluation, BI-RAD 0 RECOMMENDATION: Ultrasound of the right breast.
--- NOTE | 2018-06-17 10:08 | USB ---
US Breast Workup Limited RT Right limited breast ultrasound including focal area of concern, retroareolar and axilla demonstrates at the 7 o'clock position a 1.0 x 0.4 x 0.7 mixed lesion. These results were verbally communicated with the patient and result sheet given to the patient on 06/14/18. ASSESSMENT: Probably benign, BI-RAD 3 RECOMMENDATION: Ultrasound and follow-up diagnostic mammogram of the right breast in 6 months.
== END ==
LOC: RADMAMWWP 08:58
PROVIDERS: ATTEND Family Medicine
DX: R92.8 Other abnormal and inconclusive findings on diagnostic imaging of breast (principal)
CPT/HCPCS: 77061; 77065

== ENCOUNTER → 2018-12-13 | Outpatient (CLI) | payer BC ==
--- NOTE | 2018-12-13 09:54 | MM ---
Reason for exam: follow-up at short interval from prior study. Last mammogram was performed 6 months ago. History: Cyst aspiration of both breasts. Physical Findings: Nurse did not find any significant physical abnormalities on exam. MG 3D Diag Mammo W/Cad RT CC and MLO view(s) were taken of the right breast. Prior study comparison: June 14, 2018, right breast MG 3d work up w/cad RT. May 17, 2018, bilateral MG screening mammo w CAD. The breast tissue is heterogeneously dense. This may lower the sensitivity of mammography. The mass at 7 o'clock on the right at middle depth has slightly grown now measuring 8mm and previously measuring 7mm although this may be secondary to positioning and compression as the mass measured 1.0cm on the prior ultrasound. Ultrasound will be performed today for comparison. No suspicious new finding. These results were verbally communicated with the patient and result sheet given to the patient on 12/13/18. ASSESSMENT: Incomplete: need additional imaging evaluation, BI-RAD 0 RECOMMENDATION: Ultrasound of the right breast. (targeted 7 o'clock)
--- NOTE | 2018-12-13 09:58 | USB ---
Reason for exam: additional evaluation requested from abnormal screening. History: Cyst aspiration of both breasts. US Breast Limited RT Right limited breast ultrasound including focal area of concern, retroareolar and axilla demonstrates a 1.3 x 0.9 x 0.4cm cystic lesion at 7 o'clock. This appears cystic but slightly larger than the prior or 06/14/18 where this measured 1.0 x 0.4 x 0.7cm. Precautionary 6 month follow up again recommended to determine stability given this was new on mammogram on 05/17/18. These results were verbally communicated with the patient and result sheet given to the patient on 12/13/18. ASSESSMENT: Probably benign, BI-RAD 3 RECOMMENDATION: Follow-up diagnostic mammogram of both breasts in 6 months. Ultrasound of the right breast in 6 months.
== END | disposition home or self-care (01) ==
LOC: RADMAMWWP 08:16
PROVIDERS: ATTEND Family Medicine
DX: R92.8 Other abnormal and inconclusive findings on diagnostic imaging of breast (principal)
CPT/HCPCS: 77061; 77065

== ENCOUNTER → 2019-06-27 | Outpatient (CLI) | payer BC ==
--- NOTE | 2019-06-27 10:57 | MM ---
Reason for exam: follow-up at short interval from prior study. Last mammogram was performed 6 months ago. History: Patient is postmenopausal. Cyst aspiration of both breasts. Physical Findings: Nurse did not find any significant physical abnormalities on exam. MG Diagnostic Mammo w CAD CRISTIANO Bilateral CC and MLO view(s) were taken. Prior study comparison: December 13, 2018, right breast MG 3d diag mammo w/cad RT. June 14, 2018, right breast MG 3d work up w/cad RT. The breast tissue is heterogeneously dense. This may lower the sensitivity of mammography. There is a stable right lower inner quadrant middle depth mass and smaller right upper outer quadant mass. Benign appearing bilateral calcifications. No suspicious abnormality. These results were verbally communicated with the patient and result sheet given to the patient on 06/27/19. ASSESSMENT: Benign, BI-RAD 2 RECOMMENDATION: Routine screening mammogram of both breasts in 1 year.
--- NOTE | 2019-06-27 10:58 | USB ---
Reason for exam: follow-up at short interval from prior study. History: Patient is postmenopausal. Cyst aspiration of both breasts. US Breast Limited RT Right limited breast ultrasound including focal area of concern, retroareolar and axilla demonstrates a 9 x 4 x 8mm oval, cystic lesion at 7 o'clock, seen on previous, prior 13 x 4 x 9mm. These results were verbally communicated with the patient and result sheet given to the patient on 06/27/19. ASSESSMENT: Benign, BI-RAD 2 RECOMMENDATION: Routine screening mammogram of both breasts in 1 year.
== END | disposition home or self-care (01) ==
LOC: RADMAMWWP 08:19
PROVIDERS: ATTEND Family Medicine
DX: R92.8 Other abnormal and inconclusive findings on diagnostic imaging of breast (principal)
CPT/HCPCS: 77066

== ENCOUNTER 2019-12-19 09:15 | Day surgery (SDC) | payer BC ==
[2019-12-16 16:22] VITALS: BMI 39.4
[~2019-12-19 09:15] MED LIST: LACTATED RINGERS 1,000 ML IV SCH; LIDOCAINE 1% (10MG/ML) FOR IV START INTRADERMA PRN
[2019-12-19 10:04] VITALS: TEMP 97.1
[2019-12-19] MEDS ORDERED: GLYCOPYRROLATE 0.2 MG/ML 2 ML VIAL ONE (10:46)
[2019-12-19] MEDS ORDERED: PROPOFOL 10 MG/ML 20 ML VIAL IV ONE (10:46)
[2019-12-19] MEDS ORDERED: LIDOCAINE 1% INJ 10MG/ML (20 ML MDV) ONE (10:46)
--- NOTE | 2019-12-19 10:52 | P.GSHP ---
History of Present Illness H&P Date: 12/19/19 Chief Complaint: Screening colonoscopy Is a 59-year-old female who presents today for screening colonoscopy patient denies any significant GI complaints. She's had issues with external hemorrhoids and some rectal bleeding. Past Medical History Past Medical History: GERD/Reflux, Hypertension, Sleep Apnea/CPAP/BIPAP, Syncope Additional Past Medical History / Comment(s): iron deficiency anemia, 2010 R foot cellulitis, L knee pain chronic , SINUS BRADYCARDIA, NEURO CARDIGENIC SYNCOPE , History of Any Multi-Drug Resistant Organisms: None Reported Past Surgical History: Tubal Ligation, Uterine Ablation Additional Past Surgical History / Comment(s): serjio. vein ligation legs, tilt table test, colonoscopy, D&C. Past Anesthesia/Blood Transfusion Reactions: No Reported Reaction Smoking Status: Never smoker - Past Family History Mother Family Medical History: Pneumonia Additional Family Medical History / Comment(s): Mother of post op pneumonia at the age of 40 yrs. Father Family Medical History: Congestive Heart Failure (CHF) Additional Family Medical History / Comment(s): Father lived to be 90 yrs old. Medications and Allergies Home Medications Medication Instructions Recorded Confirmed Type Cholecalciferol [Vitamin D3 (25 1,000 unit PO AC-SUPPER 10/11/16 12/16/19 History Mcg = 1000 Iu)] Multivit with Calcium,Iron,Min 1 tab PO DAILY 10/11/16 12/16/19 History [Women's Multivitamin] Psyllium Husk [Metamucil] 0.4 gm PO HS 10/11/16 12/16/19 History Losartan [Cozaar] 50 mg PO BID 12/16/19 12/16/19 History Allergies Allergy/AdvReac Type Severity Reaction Status Date / Time bee pollen Allergy Anaphylaxis Verified 12/19/19 10:05 vancomycin Allergy Rash/Hives Verified 12/19/19 10:05 aspirin AdvReac ringing in Verified 12/19/19 10:05 ears caffeine AdvReac GI upset Verified 12/19/19 10:05 Surgical - Exam Vital Signs Temp Pulse Resp BP Pulse Ox 97.1 F L 60 14 149/74 97 12/19/19 10:01 12/19/19 10:01 12/19/19 10:01 12/19/19 10:01 12/19/19 10:01 - General well developed, well nourished, no distress - Eyes PERRL - ENT normal pinna - Neck no masses - Respiratory normal expansion - Cardiovascular Rhythm: regular - Abdomen Abdomen: soft, non tender Assessment and Plan Assessment: We'll perform screening colonoscopy
--- NOTE | 2019-12-19 11:00 | P.OP ---
Date of Procedure: 12/19/19 Preoperative Diagnosis: Screening colonoscopy Postoperative Diagnosis: Normal colon External hemorrhoids Procedure(s) Performed: Colonoscopy Anesthesia: MAC Surgeon: Ismael Coker Pathology: none sent Condition: stable Disposition: PACU Description of Procedure: The patient's placed on the endoscopy table in the lateral position. He received IV sedation. Digital rectal exam performed which revealed no abnormalities. Flexible colonoscope was then placed anus passed throughout the entire colon. The ileocecal valve was visualized. Cecum, ascending and transverse colon appeared normal. The descending and sigmoid colon appeared normal. The scope was then brought back the rectum and this appeared normal. Scope was withdrawn from the anus and internal extremity noted. Scope was then withdrawn from the patient
[2019-12-19 11:38] VITALS: BP 125/74; PULSE 77; RESP 18
== END 2019-12-19 11:44 | disposition home or self-care (01) ==
LOC: ORWHC2ENDO 09:15
PROVIDERS: ATTEND Surgery
DX: K64.4 Residual hemorrhoidal skin tags (principal); K21.9 Gastro-esophageal reflux disease without esophagitis; I10 Essential (primary) hypertension; G47.33 Obstructive sleep apnea (adult) (pediatric); Z99.89 Dependence on other enabling machines and devices; D50.9 Iron deficiency anemia, unspecified; Z98.51 Tubal ligation status; Z98.890 Other specified postprocedural states; Z88.6 Allergy status to analgesic agent; Z91.048 Other nonmedicinal substance allergy status; Z88.1 Allergy status to other antibiotic agents; Z91.030 Bee allergy status; Z79.899 Other long term (current) drug therapy; Z82.49 Family history of ischemic heart disease and other diseases of the circulatory system
CPT/HCPCS: 45378; J2001; J2704

== ENCOUNTER → 2020-10-08 | Outpatient (CLI) | payer BC ==
--- NOTE | 2020-10-12 09:20 | MM ---
Reason for exam: screening (asymptomatic). Last mammogram was performed 1 year and 3 months ago. History: Patient is postmenopausal. Cyst aspiration of both breasts. Physical Findings: A clinical breast exam by your physician is recommended on an annual basis and results should be correlated with mammographic findings. MG Screening Mammo w CAD Bilateral CC, MLO, and XCCL view(s) were taken. Prior study comparison: June 27, 2019, bilateral MG diagnostic mammo w CAD [facility]. December 13, 2018, right breast MG 3d diag mammo w/cad RT. The breast tissue is heterogeneously dense. This may lower the sensitivity of mammography. Increasing microcalcifications upper outer left breast. Increasing nodule upper outer right breast zone C. ASSESSMENT: Incomplete: need additional imaging evaluation, BI-RAD 0 RECOMMENDATION: Special view mammogram and ultrasound of both breasts. [facility] will attempt to contact patient to return for supplemental views and ultrasound.
== END | disposition home or self-care (01) ==
LOC: RADMAMWWP 10:26
PROVIDERS: ATTEND Family Medicine
DX: Z12.31 Encounter for screening mammogram for malignant neoplasm of breast (principal); Z78.0 Asymptomatic menopausal state
CPT/HCPCS: 77067

== ENCOUNTER → 2020-11-12 | Outpatient (CLI) | payer BC ==
--- NOTE | 2020-11-12 10:09 | USB ---
EXAMINATION TYPE: US breast workup limited [facility] DATE OF EXAM: 11/12/2020 COMPARISON: Mammogram same date CLINICAL HISTORY: R92.8 abn mammogram. Findings: Targeted right breast ultrasound was performed from 9-12 o'clock. In the right breast at 9:00, there is a 1.3 x 0.6 x 1.0 cm ovoid hypoechoic lesion which most likely represents a complicated cyst. Follow-up right breast ultrasound is recommended in 6 months. In the right breast at 11:00, there is a 1.7 x 0.6 x 1.2 cm anechoic lesion which is consistent with a cyst and most likely represents the asymmetry seen on mammogram. The left breast was scanned with ultrasound at 2:00, the retroareolar region and axillary tail in the region of patient's focal pain. There is no sonographic correlate for patient's pain. Clinical follo w-up is recommended. IMPRESSION: 1. Six-month right breast ultrasound is recommended for the ovoid hypoechoic lesion at 9:00 which lik kin represents a complicated cyst. 2. Clinical follow-up is recommended for left breast pain. BI-RADS 3, probably benign.
--- NOTE | 2020-11-12 10:35 | MM ---
Reason for exam: additional evaluation requested from prior study. Last mammogram was performed 1 month ago. History: Patient is postmenopausal. Cyst aspiration of both breasts. Physical Findings: Nurse did not find any significant physical abnormalities on exam. MG Work Up Mamm w CAD BILAT Bilateral LM view(s) were taken. Spot compression CC and spot compression MLO view(s) were taken of the right breast. CC with magnification and LM with magnification view(s) were taken of the left breast. Prior study comparison: October 08, 2020, bilateral MG screening mammo w CAD. June 27, 2019, bilateral MG diagnostic mammo w CAD [facility]. May 17, 2018, bilateral MG screening mammo w CAD. The breast tissue is heterogeneously dense. This may lower the sensitivity of mammography. There is a 1.7cm mass in the right upper outer quadrant at middle depth which has slightly increased in size since priors and ultrasound is recommended. There is a grouping of heterogeneous calcifications in the left upper outer quadrant not significantly changed since 2018 with layering on true lateral imaging, consistent with milk of calcium. Left upper outer quadrant ultrasound is recommended for patient's reported focal pain. These results were verbally communicated with the patient and result sheet given to the patient on 11/12/20. ASSESSMENT: Incomplete: need additional imaging evaluation, BI-RAD 0 RECOMMENDATION: Ultrasound of both breasts. CYDNEYD
== END | disposition home or self-care (01) ==
LOC: RADMAMWWP 08:58
PROVIDERS: ATTEND Family Medicine
DX: R92.1 Mammographic calcification found on diagnostic imaging of breast (principal); N63.11 Unspecified lump in the right breast, upper outer quadrant; Z78.0 Asymptomatic menopausal state
CPT/HCPCS: 77066

== ENCOUNTER → 2022-10-06 | Outpatient (CLI) | payer BC ==
--- NOTE | 2022-10-06 19:21 | MM ---
Reason for Exam: Screening (asymptomatic). Last mammogram was performed 2 year(s) and 0 month(s) ago. Patient History: Menarche at age 11. First Full-Term at age 23. Postmenopausal. Bilateral Cyst Aspiration. Risk Values: Lizabeth 5 year model risk: 1.4%. NCI Lifetime model risk: 6.0%. Prior Study Comparison: 06/27/2019 Bilateral Diagnostic Mammogram, [facility]. 10/08/2020 Bilateral Screening Mammogram, [facility]. 11/12/2020 Bilateral Diagnostic Mammogram, [facility]. Tissue Density: The breast tissue is heterogeneously dense. This may lower the sensitivity of mammography. Findings: Analyzed By CAD. Regional punctate calcifications redemonstrated upper outer quadrant left breast. There is focal asymmetry central 6:00 right breast which is more defined. This may represent superimposition shadow but further evaluation is recommended. Otherwise, no significant change from prior exams. Overall Assessment: Incomplete: need additional imaging evaluation, BI-RAD 0 Management: Special View Mammogram of the right breast. Including spot 3-D CC, 3-D CC rolled medial, spot 3-D MLO, and 3-D lateral views. Targeted right breast ultrasound if any persisting abnormality. [facility] will attempt to contact patient to return for supplemental views and ultrasound if indicated. Electronically signed and approved by: Yo Renteria M.D. Radiologist
== END | disposition home or self-care (01) ==
LOC: RADMAMWWP 07:43
PROVIDERS: ATTEND Family Medicine
DX: Z12.31 Encounter for screening mammogram for malignant neoplasm of breast (principal); Z78.0 Asymptomatic menopausal state
CPT/HCPCS: 77067

== ENCOUNTER → 2022-10-11 | Outpatient (CLI) | payer BC ==
--- NOTE | 2022-10-11 09:18 | MM ---
Reason for Exam: Additional evaluation requested from abnormal screening. Last screening mammogram was performed less than 1 month ago. Patient History: Menarche at age 11. First Full-Term at age 23. Postmenopausal. Bilateral Cyst Aspiration. Risk Values: Lizabeth 5 year model risk: 1.4%. NCI Lifetime model risk: 6.0%. Prior Study Comparison: 06/27/2019 Bilateral Diagnostic Mammogram, [facility]. 10/08/2020 Bilateral Screening Mammogram, [facility]. 11/12/2020 Bilateral Diagnostic Mammogram, [facility]. 10/06/2022 Bilateral MG screening mammo w CAD, [facility]. Tissue Density: Right: The breast tissue is heterogeneously dense. This may lower the sensitivity of mammography. Findings: Analyzed By CAD. The questioned areas of asymmetric density on both the CC and MLO view did not persist on additional views. Findings compatible with superimposition shadow. Overall Assessment: Benign, BI-RAD 2 Management: Screening Mammogram of both breasts in 1 year. . Results were given to the patient verbally at the time of exam. Patient should continue monthly self-breast exams. A clinical breast exam by your physician is recommended on an annual basis. This exam should not preclude additional follow-up of suspicious palpable abnormalities. Note on Lizabeth scores and lifetime risk: 1. A Lizabeth score greater than 3% is considered moderate risk. If this is the case, consider specialist referral to assess eligibility for a risk reducing agent. 2. If overall lifetime risk for the development of breast cancer is 20% or higher, the patient may qualify for future screening with alternating mammogram and breast MRI. Electronically signed and approved by: oY Renteria M.D. Radiologist
== END | disposition home or self-care (01) ==
LOC: RADMAMWWP 08:42
PROVIDERS: ATTEND Family Medicine
DX: R92.8 Other abnormal and inconclusive findings on diagnostic imaging of breast (principal); Z78.0 Asymptomatic menopausal state
CPT/HCPCS: 77061; 77065

== ENCOUNTER → 2023-10-12 | Outpatient (CLI) | payer BC ==
--- NOTE | 2023-10-18 11:51 | MM ---
Reason for Exam: Screening (asymptomatic). Last screening mammogram was performed 12 month(s) ago. Patient History: Menarche at age 11. First Full-Term at age 23. Postmenopausal. Bilateral Cyst Aspiration. Risk Values: Lizabeth 5 year model risk: 1.4%. NCI Lifetime model risk: 5.8%. Prior Study Comparison: 11/12/2020 Bilateral Diagnostic Mammogram, [facility]. 10/06/2022 Bilateral MG screening mammo w CAD, [facility]. 10/11/2022 Right MG 3D work up w/cad RT, [facility]. Tissue Density: The breasts are heterogeneously dense, which may obscure small masses. Findings: Analyzed By CAD. There is no suspicious group of microcalcifications or new suspicious mass in either breast. Stable bilateral benign-appearing calcifications. Overall Assessment: Benign, BI-RAD 2 Management: Screening Mammogram of both breasts in 1 year. . Patient should continue monthly self-breast exams. A clinical breast exam by your physician is recommended on an annual basis. This exam should not preclude additional follow-up of suspicious palpable abnormalities. Note on Lizabeth scores and lifetime risk: 1. A Lizabeth score greater than 3% is considered moderate risk. If this is the case, consider specialist referral to assess eligibility for a risk reducing agent. 2. If overall lifetime risk for the development of breast cancer is 20% or higher, the patient may qualify for future screening with alternating mammogram and breast MRI. Electronically signed and approved by: Paresh Naranjo M.D. Radiologis
== END | disposition home or self-care (01) ==
LOC: RADMAMWWP 11:04
PROVIDERS: ATTEND Family Medicine
DX: Z12.31 Encounter for screening mammogram for malignant neoplasm of breast (principal); Z78.0 Asymptomatic menopausal state
CPT/HCPCS: 77067

== ENCOUNTER → 2024-10-31 | Outpatient (CLI) | payer MEDICARE ==
--- NOTE | 2024-10-31 09:52 | MM ---
Reason for Exam: Screening (asymptomatic). Last mammogram was performed 1 year(s) and 1 month(s) ago. Patient History: Menarche at age 11. First Full-Term at age 23. Postmenopausal. Bilateral Cyst Aspiration. Risk Values: Lizabeth 5 year model risk: 1.5%. NCI Lifetime model risk: 5.6%. Prior Study Comparison: 10/06/2022 Bilateral MG screening mammo w CAD, [facility]. 10/11/2022 Right MG 3D work up w/cad RT, [facility]. 10/12/2023 Bilateral MG screening mammo w CAD, [facility]. Tissue Density: The breasts are heterogeneously dense, which may obscure small masses. Findings: Analyzed By CAD. Calcifications upper outer quadrant left breast. Stable chronic nodularity right breast. Stable benign-appearing calcifications. Overall Assessment: Incomplete: need additional imaging evaluation, BI-RAD 0 Management: Special View Mammogram of the left breast. . Patient should continue monthly self-breast exams. A clinical breast exam by your physician is recommended on an annual basis. This exam should not preclude additional follow-up of suspicious palpable abnormalities. Note on Lizabeth scores and lifetime risk: 1. A Lizabeth score greater than 3% is considered moderate risk. If this is the case, consider specialist referral to assess eligibility for a risk reducing agent. 2. If overall lifetime risk for the development of breast cancer is 20% or higher, the patient may qualify for future screening with alternating mammogram and breast MRI. [facility], , 10/31/2024 9:49 AM. Electronically signed and approved by: Paresh Naranjo M.D. Radiologis
== END | disposition home or self-care (01) ==
LOC: RADMAMWWP 09:31
PROVIDERS: ATTEND Family Medicine
DX: Z12.31 Encounter for screening mammogram for malignant neoplasm of breast (principal); R92.333 Mammographic heterogeneous density, bilateral breasts; R92.1 Mammographic calcification found on diagnostic imaging of breast; Z78.0 Asymptomatic menopausal state
CPT/HCPCS: 77067

== ENCOUNTER → 2024-11-07 | Outpatient (CLI) | payer MEDICARE ==
--- NOTE | 2024-11-07 15:22 | MM ---
Reason for Exam: Additional evaluation requested from abnormal screening. Last screening mammogram was performed less than 1 month ago. Patient History: Menarche at age 11. First Full-Term at age 23. Postmenopausal. Bilateral Cyst Aspiration. Risk Values: Lizabeth 5 year model risk: 1.5%. NCI Lifetime model risk: 5.6%. Prior Study Comparison: 10/11/2022 Right MG 3D work up w/cad RT, [facility]. 10/12/2023 Bilateral MG screening mammo w CAD, [facility]. 10/31/2024 Bilateral MG screening mammo w CAD, [facility]. Tissue Density: Left: The breasts are heterogeneously dense, which may obscure small masses. Findings: Analyzed By CAD. The groups and regional calcifications left upper outer quadrant middle to posterior depth appear unchanged from 2023 but slightly increased from 2022. Some of these calcifications appear amorphous and some appear punctate. Benign etiology is favored given stability of one year. Ongoing follow-up recommended. Overall Assessment: Probably benign, BI-RAD 3 Management: Diagnostic Mammogram of the left breast in 6 months. Results were given to the patient verbally at the time of exam. Patient should continue monthly self-breast exams. A clinical breast exam by your physician is recommended on an annual basis. This exam should not preclude additional follow-up of suspicious palpable abnormalities. Note on Lizabeth scores and lifetime risk: 1. A Lizabeth score greater than 3% is considered moderate risk. If this is the case, consider specialist referral to assess eligibility for a risk reducing agent. 2. If overall lifetime risk for the development of breast cancer is 20% or higher, the patient may qualify for future screening with alternating mammogram and breast MRI. [facility], , 11/07/2024 3:18 PM. Electronically signed and approved by: Yo Renteria M.D. Radiologist
== END | disposition home or self-care (01) ==
LOC: RADMAMWWP 14:54
PROVIDERS: ATTEND Family Medicine
DX: R92.8 Other abnormal and inconclusive findings on diagnostic imaging of breast (principal); R92.332 Mammographic heterogeneous density, left breast; R92.1 Mammographic calcification found on diagnostic imaging of breast; Z78.0 Asymptomatic menopausal state
CPT/HCPCS: 77061; 77065